=== PATIENT | male | born 1970 | race Caucasian/White ===

== ENCOUNTER 2024-04-06 08:13 | Emergency (ER) | payer OTHER ==
[2024-04-06 08:20] VITALS: BP 150/97; PULSE 83; RESP 18; TEMP 97.7; BMI 24.3
[2024-04-06] MEDS ORDERED: BACITRACIN ZINC 15 GM TUBE TOPICAL OINTMENT TP ONE (08:41)
[2024-04-06] MEDS ORDERED: BACITRACIN ZINC 15 GM TUBE TOPICAL OINTMENT ONE (08:44)
== END 2024-04-06 09:01 | disposition home or self-care (01) ==
LOC: JERFT 08:13
DX: Z48.02 Encounter for removal of sutures (principal)
CPT/HCPCS: 99281-25

== ENCOUNTER 2025-02-21 07:29 | Day surgery (SDC) | payer OTHER ==
[2025-02-18 12:35] VITALS: BMI 23.4
[2025-02-21 07:49] VITALS: RESP 18
[2025-02-21] MEDS ORDERED: LIDOCAINE HCL/PF 2% SDV 5ML VIAL ONE (08:58)
[2025-02-21 10:17] VITALS: TEMP 97
[2025-02-21 10:36] VITALS: BP 123/82; PULSE 62
== END 2025-02-21 10:57 | disposition home or self-care (01) ==
LOC: FASU-ENDO 07:29
PROVIDERS: ATTEND Internal Medicine Gastroenterology
PROC: 0DB38ZX Excision of Lower Esophagus, Via Natural or Artificial Opening Endoscopic, Diagnostic (ICD-10-PCS; 2025-02-21)
PROC: 0DB68ZX Excision of Stomach, Via Natural or Artificial Opening Endoscopic, Diagnostic (ICD-10-PCS; 2025-02-21)
PROC: 0DB28ZX Excision of Middle Esophagus, Via Natural or Artificial Opening Endoscopic, Diagnostic (ICD-10-PCS; 2025-02-21)
PROC: 0DJD8ZZ Inspection of Lower Intestinal Tract, Via Natural or Artificial Opening Endoscopic (ICD-10-PCS; principal; 2025-02-21 09:46)
DX: Z12.11 Encounter for screening for malignant neoplasm of colon (principal); K64.0 First degree hemorrhoids; K29.50 Unspecified chronic gastritis without bleeding; K21.00 Gastro-esophageal reflux disease with esophagitis, without bleeding
CPT/HCPCS: 43239; G0121; 88305-TC; 88342-TC